=== PATIENT | female | born 1935 | race Caucasian/White ===

== ENCOUNTER → 2016-06-10 | Outpatient (CLI) | payer MEDICARE, OTHER ==
[~2016-06-10] MED LIST: AMBIEN10 MG PO; ASPIRIN (CHILDR81 MG PO; ATIVAN 0.5MG0.5 MG PO; ATIVAN 1 MG1 MG PO; CELEXA20 MG PO; DESYREL150 MG PO; DITROPAN5 MG PO; HYDROCODON-ACE1 EAC4 PO; HYZAAR 50-12.51 EACH PO; K-TAB ER20 MEQ PO; KLOR-CON M2020 MEQ PO; LAMICTAL150 MG PO; MAG-OX-400(241400 MG PO; MYLICON OR GAS-80 MG PO; MYRBETRIQ25 MG; NORCO 5-325 MG1 TAB PO; NORVASC10 MG PO; PRAVACHOL20 MG PO; PROTONIX40 MG PO; PROVENTIL OR V6.7 GM INH
[2016-06-10 13:30] LABS: HEMATOCRIT 28.7 % (33.0-46.0); HEMOGLOBIN 9.4 g/dL (10.0-15.0); MCH 34.2 pg (27.0-34.0); MCHC 32.8 gm/dL (32.0-36.5); MCV 104.4 fl (83.0-98.0); MPV 10.5 fl (9.4-12.4); PLATELET COUNT 84 K/uL (150-450); RBC 2.75 M/uL (3.50-5.50); RDW-CV 13.6 % (11.9-14.6); WBC 3.8 K/uL (4.0-11.0)
[2016-06-10 14:15] LABS: ABSOLUTE NEUTROPHIL CT (ANC) 2.6 K/uL (1.8-7.8); BANDED NEUTROPHILS % 1 %; LYMPHOCYTE # 0.5 K/uL (0.8-4.0); LYMPHOCYTE % 12 %; MONOCYTE # 0.5 K/uL (0.0-1.0); SEGMENTED NEUTROPHIL # 2.5 K/uL (1.8-7.8); SEGMENTED NEUTROPHIL % 66 %
== END | disposition disaster alternative care site (69) ==
LOC: GOPD 06-08 → GRAD 12:35 → GOPD 13:30
PROVIDERS: Internal Medicine Hematology & Oncology
PROC: 07BD3ZX Excision of Aortic Lymphatic, Percutaneous Approach, Diagnostic (ICD-10-PCS; principal; 2016-06-10)
DX: I89.8 Other specified noninfective disorders of lymphatic vessels and lymph nodes (principal); C19 Malignant neoplasm of rectosigmoid junction; C78.6 Secondary malignant neoplasm of retroperitoneum and peritoneum; N39.41 Urge incontinence; D51.8 Other vitamin B12 deficiency anemias; K12.31 Oral mucositis (ulcerative) due to antineoplastic therapy; I95.1 Orthostatic hypotension; D70.1 Agranulocytosis secondary to cancer chemotherapy; D64.81 Anemia due to antineoplastic chemotherapy
CPT/HCPCS: J2250; J3010

== ENCOUNTER → 2016-07-08 | Day surgery (SDC) | payer MEDICARE, OTHER ==
[~2016-07-08] VITALS: Ht 162.6 cm; Wt 80.5 kg
== END | disposition disaster alternative care site (69) ==
LOC: GPOC 07-03 16:00 → GEND 07:20 → GPOC 07:30
PROC: 0DJD8ZZ Inspection of Lower Intestinal Tract, Via Natural or Artificial Opening Endoscopic (ICD-10-PCS; principal; 2016-07-08)
DX: K62.7 Radiation proctitis (principal); Z85.048 Personal history of other malignant neoplasm of rectum, rectosigmoid junction, and anus; I10 Essential (primary) hypertension; F41.9 Anxiety disorder, unspecified; F32.9 Major depressive disorder, single episode, unspecified; Z93.3 Colostomy status; Z88.6 Allergy status to analgesic agent; Z98.890 Other specified postprocedural states; Z96.653 Presence of artificial knee joint, bilateral; Z79.82 Long term (current) use of aspirin; Z79.899 Other long term (current) drug therapy
CPT/HCPCS: J7030

== ENCOUNTER → 2016-10-28 | Outpatient (CLI) | payer MEDICARE, OTHER ==
[2016-10-28 12:10] LABS: HEMATOCRIT 30.8 % (33.0-46.0); HEMOGLOBIN 10.5 g/dL (10.0-15.0); MCH 34.8 pg (27.0-34.0); MCHC 34.1 gm/dL (32.0-36.5); MPV 10.3 fl (9.4-12.4); PLATELET COUNT 118 K/uL (150-450); RBC 3.02 M/uL (3.50-5.50); RDW-CV 14.1 % (11.9-14.6); WBC 3.4 K/uL (4.0-11.0)
[2016-10-28 12:38] LABS: ABSOLUTE NEUTROPHIL CT (ANC) 2.5 K/uL (1.8-7.8); BANDED NEUTROPHIL # 0.2 K/uL (0.0-0.1); BANDED NEUTROPHILS % 5 %; LYMPHOCYTE # 0.4 K/uL (0.8-4.0); LYMPHOCYTE % 13 %; MONOCYTE # 0.2 K/uL (0.0-1.0); SEGMENTED NEUTROPHIL # 2.4 K/uL (1.8-7.8); SEGMENTED NEUTROPHIL % 69 %
[2016-10-28 12:43] LABS: ALBUMIN 3.7 gm/dL (3.5-5.0); ANION GAP 10.5 (10.0-19.0); CALCIUM 8.6 mg/dL (8.5-10.5); CREATININE 1.1 mg/dL (0.5-1.1); MAGNESIUM 1.9 mg/dL (1.8-2.6); POTASSIUM 3.5 mMol/L (3.7-5.1); TOTAL BILIRUBIN 0.4 mg/dL (0.0-1.5); TOTAL PROTEIN 7.3 g/dL (6.0-8.4)
[2016-10-30 00:19] LABS: ANGIOTENSIN-CONVERTING ENZYME 50 U/L (4-60)
== END ==
LOC: GKIC 10:50 → GLAB 11:00
PROVIDERS: Internal Medicine Hematology & Oncology
DX: C19 Malignant neoplasm of rectosigmoid junction (principal); C79.51 Secondary malignant neoplasm of bone
CPT/HCPCS: A9552